=== PATIENT | female | born 1950 | race Caucasian/White ===

== ENCOUNTER 2021-10-05 17:04 | Inpatient (IN) | payer MEDICARE ==
[~2021-10-05] VITALS: Ht 160 cm; Wt 79.1 kg
[2021-10-05 21:14] LABS: HEMOGLOBIN 13.2 gm/dl (12.3-15.3); RED BLOOD COUNT 4.54 M/UL (4.00-5.10); WHITE BLOOD COUNT 12.8 K/UL (4.5-11.0)
[2021-10-05 21:30] LABS: BUN/CREATININE RATIO 20 (0-10)
[2021-10-06 04:54] LABS: RED BLOOD COUNT 4.21 M/UL (4.00-5.10)
[2021-10-06 05:02] LABS: WHITE BLOOD COUNT 8.8 K/UL (4.5-11.0)
[2021-10-06 05:32] LABS: BUN/CREATININE RATIO 24 (0-10)
[2021-10-06] MEDS ORDERED: BENZONATATE100 MG PO (10:49)
[2021-10-06] MEDS ORDERED: APRISO0.375 GM PO (10:49)
[2021-10-06] MEDS ORDERED: ASPIRIN EC81 MG PO (10:49)
[2021-10-06] MEDS ORDERED: VENLAFAXINE HC150 M1 PO (10:49)
[2021-10-06] MEDS ORDERED: WELLBUTRIN XL300 MG PO (10:50)
[2021-10-06] MEDS ORDERED: CARVEDILOL12.5 MG PO (10:50)
[2021-10-06] MEDS ORDERED: ATORVASTATIN CA40 MG PO (10:50)
[2021-10-06] MEDS ORDERED: LOSARTAN-HCTZ1 EAC1 PO (10:50)
[2021-10-06] MEDS ORDERED: MULTIVITAMIN1 EACH PO (10:51)
[2021-10-06] MEDS ORDERED: JANUVIA100 MG PO (10:51)
[2021-10-06] MEDS ORDERED: BRILINTA 90 MG90 MG PO (12:09)
[2021-10-06 17:23] LABS: HEMOGLOBIN 11.6 gm/dl (12.3-15.3); RED BLOOD COUNT 3.96 M/UL (4.00-5.10)
[2021-10-06 17:45] LABS: WHITE BLOOD COUNT 13.3 K/UL (4.5-11.0)
[2021-10-06 17:57] LABS: BUN/CREATININE RATIO 20 (0-10)
[2021-10-07 08:06] LABS: HEMOGLOBIN 10.2 gm/dl (12.3-15.3)
[2021-10-07 08:09] LABS: RED BLOOD COUNT 3.5 M/UL (4.00-5.10); WHITE BLOOD COUNT 9.9 K/UL (4.5-11.0)
[2021-10-07 08:25] LABS: BUN/CREATININE RATIO 20 (0-10)
[2021-10-08 06:24] LABS: HEMOGLOBIN 9.1 gm/dl (12.3-15.3); WHITE BLOOD COUNT 8.9 K/UL (4.5-11.0)
[2021-10-08 06:27] LABS: RED BLOOD COUNT 3.05 M/UL (4.00-5.10)
[2021-10-08 06:58] LABS: BUN/CREATININE RATIO 28 (0-10)
[2021-10-09 07:16] LABS: HEMOGLOBIN 8.6 gm/dl (12.3-15.3); RED BLOOD COUNT 2.92 M/UL (4.00-5.10); WHITE BLOOD COUNT 9.3 K/UL (4.5-11.0)
[2021-10-09 07:29] LABS: BUN/CREATININE RATIO 28 (0-10)
[2021-10-10 06:29] LABS: HEMOGLOBIN 8.4 gm/dl (12.3-15.3); RED BLOOD COUNT 2.88 M/UL (4.00-5.10); WHITE BLOOD COUNT 8.6 K/UL (4.5-11.0)
[2021-10-12 06:01] LABS: RED BLOOD COUNT 2.78 M/UL (4.00-5.10); WHITE BLOOD COUNT 9.2 K/UL (4.5-11.0)
[2021-10-12 06:22] LABS: BUN/CREATININE RATIO 24 (0-10)
[2021-10-13 02:37] LABS: HEMOGLOBIN 7.8 gm/dl (12.3-15.3); RED BLOOD COUNT 2.72 M/UL (4.00-5.10)
[2021-10-13] MEDS ORDERED: HYDROCODON-ACE1 EAC6 PO (10:58)
[2021-10-13] MEDS ORDERED: POLYETHYLENE GL17 GM PO (11:03)
[2021-10-13] MEDS ORDERED: ENOXAPARIN40 MG/0.4 SC (11:03)
== END 2021-10-13 14:32 | DRG 521 ==
LOC: ER1 17:04 → MED SURG 4 21:06 → CDU 21:06 → MED SURG 4 23:01
PROVIDERS: Family Medicine; Internal Medicine; Orthopaedic Surgery; Physician Assistant; ADMIT Internal Medicine
PROC: 0SRS0JA Replacement of Left Hip Joint, Femoral Surface with Synthetic Substitute, Uncemented, Open Approach (ICD-10-PCS; principal; 2021-10-06 15:35)
DX: S72.002A Fracture of unspecified part of neck of left femur, initial encounter for closed fracture (principal); I77.71 Dissection of carotid artery; D62 Acute posthemorrhagic anemia; Z20.822 Contact with and (suspected) exposure to COVID-19; R73.03 Prediabetes; K52.9 Noninfective gastroenteritis and colitis, unspecified; Z85.3 Personal history of malignant neoplasm of breast; I10 Essential (primary) hypertension; W18.30XA Fall on same level, unspecified, initial encounter; K64.9 Unspecified hemorrhoids; E87.6 Hypokalemia; E78.5 Hyperlipidemia, unspecified; E66.9 Obesity, unspecified; K21.9 Gastro-esophageal reflux disease without esophagitis; Y92.524 Gas station as the place of occurrence of the external cause; Z79.01 Long term (current) use of anticoagulants; Z98.890 Other specified postprocedural states; Z79.82 Long term (current) use of aspirin; Z83.3 Family history of diabetes mellitus; Z82.49 Family history of ischemic heart disease and other diseases of the circulatory system; Z87.19 Personal history of other diseases of the digestive system; Z90.10 Acquired absence of unspecified breast and nipple; Z90.710 Acquired absence of both cervix and uterus
CPT/HCPCS: 36415; 71045; 72170; 73502; 73552; 73562; 80048; 80053; 80061; 82550; 82553; 82607; 82746; 82962; 83036; 83540; 83550; 83735; 83880; 84100; 84439; 84443; 84484; 84550; 85025; 85610; 93005; 96374; 96375; 97116; 97116-GP-CQ; 97162; 97166; 97530; 97530-GP-CQ; 97535; 99285; C1776; J0690; J1100; J1170; J1650; J2001; J2250; J2270; J2405; J2704; J2795; J3010; U0002